=== PATIENT | male | born 1940 | race Caucasian/White ===

== ENCOUNTER 2016-08-20 12:12 | Emergency (ER) | payer MEDICARE, OTHER ==
[2016-08-20] MEDS ORDERED: Diphtheria,Pertussis(Acell),Tetanus Vaccine 0.5 ML SDV IM ONE (13:05)
[2016-08-20 13:27] VITALS: BP 170/85
--- NOTE | 2016-08-23 09:41 | ER ---
DATE SEEN: 08/20/2016 TIME SEEN: The patient was seen at 1230 hours. CHIEF COMPLAINT: Laceration, left fifth finger. PAST MEDICAL HISTORY: No diabetes, but he has hypothyroidism, hypertension, he has bilateral hip discomfort, bilateral ESTRELLITA, obesity, hyperuricemia, gout, diabetes, KAVITHA for which he uses CPAP and atrial fibrillation MEDICATIONS: 1. Warfarin for atrial fibrillation. 2. Potassium. 3. Lasix. 4. Omeprazole. 5. Irbesartan. 6. Atorvastatin. 7. Metoprolol. 8. Levothyroxine. 9. Allopurinol. 10.Glipizide. ALLERGIES: Penicillin. PHYSICAL EXAMINATION: GENERAL: Pleasant, very overweight, pear-shaped body, and in mild distress, who has very large working hands. VITAL SIGNS: Blood pressure 162/81, heart rate 82, respirations 17, oxygen saturation 96, 147.418 kg, BMI 42.9. HEENT: Negative. LUNGS: Clear. HEART: Without murmur. ABDOMEN: Soft. No guarding. Marked pear-shaped body habitus. EXTREMITIES: Without edema. Left upper extremity, laceration 2.5 cm in the distal phalangeal tuft of his finger. Sensation intact. Cap refill is good. Wound was cleansed and injected with lidocaine 1%/1:100,000 epinephrine. After adequate analgesia, the wound was again cleansed, flushed, then closed with interrupted 6 stitches of 4-0 Ethilon. The patient tolerated the procedure well. No complications. Tetanus was given to him today. PLAN: Follow up with doctor in 14 days for suture removal. Keep clean. If it gets wet, change dressing, otherwise use bacitracin and dressing on a daily basis. Elevate his hand to decrease throbbing. OTHER DIAGNOSES: Diabetes, hypertension, obstructive sleep apnea, hypothyroidism, gout, obesity, and bilateral hip arthritis. /[id number] MIGUELINA/MATTHEW
== END 2016-08-20 13:22 | disposition home or self-care (01) ==
LOC: FB.ED 12:12
DX: S61.217A Laceration without foreign body of left little finger without damage to nail, initial encounter (principal); I10 Essential (primary) hypertension; E03.9 Hypothyroidism, unspecified; G47.33 Obstructive sleep apnea (adult) (pediatric); M10.9 Gout, unspecified; E66.9 Obesity, unspecified; M16.0 Bilateral primary osteoarthritis of hip; I48.91 Unspecified atrial fibrillation; Z88.0 Allergy status to penicillin; Z23 Encounter for immunization; X58.XXXA Exposure to other specified factors, initial encounter
CPT/HCPCS: 12001; 90471; 90715; 99283; A4217

== ENCOUNTER 2019-12-20 20:53 | Emergency (ER) | payer MEDICARE, OTHER ==
--- NOTE | 2019-12-20 20:59 | EDM.PDOC ---
ED HPI GENERAL MEDICAL PROBLEM - General Stated Complaint: LEG Time Seen by Provider: 12/20/19 20:58 Source of Information: Reports: Patient History Limitations: Reports: No Limitations - History of Present Illness INITIAL COMMENTS - FREE TEXT/NARRATIVE: 79-year-old male with swelling in both lower extremities for quite some time and since he had a stroke 2 years ago the swelling in his right lower leg has always been worse than the left lower leg. He oftentimes has sores that open up and drain on his right lower leg and he has had those asked 2 weeks. He has noticed over the past 3-4 days that there has developed some redness in the area of these open wounds and tonight he was concerned that he could be developing an infection. He has had no fevers or chills. No malaise. No nausea or vomiting. He has been eating and drinking normally. No cough. No shortness of breath. No chest pain. He does have some burning in the area of the wounds that he rates as a 4/10. It is worse with palpation. It is better at rest and when elevated. There are no other associated signs or symptoms. There are no other modifying factors. Onset: Other (Long-standing swelling in both legs. Open wounds for the past 1 week and with redness over the past 3-4 days.) Duration: Getting Worse (According to the patient) Location: Reports: Lower Extremity, Right (Right lower leg) Quality: Reports: Burning Severity: Mild (to 100.) Improves with: Reports: Rest Worsens with: Reports: Other (Palpation), Movement Context: Reports: Other Associated Symptoms: Reports: No Other Symptoms Treatments TOUR ESCORT: Reports: Other (see below) - Related Data Allergies Allergy/AdvReac Type Severity Reaction Status Date / Time Penicillins Allergy Hives Verified 08/20/16 12:14 Home Meds: Home Meds Allopurinol [Zyloprim] 400 mg PO DAILY 09/08/13 [History] Omeprazole 20 mg PO DAILY 03/21/16 [History] atorvaSTATin [Lipitor] 10 mg PO DAILY 03/21/16 [History] glipiZIDE [Glipizide] 5 mg PO DAILY 03/21/16 [History] Furosemide 60 mg PO DAILY 08/20/16 [History] Furosemide [Lasix] 40 mg PO ACLUNCH 08/20/16 [History] Potassium Chloride [Klor-Con 10] 20 meq PO BID 08/20/16 [History] Warfarin Sodium [Coumadin] 5 mg PO MOWEFR 08/20/16 [History] Warfarin Sodium [Coumadin] 7.5 mg PO SUMOTUTHSA 08/20/16 [History] Gabapentin [Neurontin] 100 mg PO BID 12/20/19 [History] Levothyroxine Sodium [Synthroid] 200 mcg PO ACLUNCH 12/20/19 [History] Losartan Potassium 100 mg PO DAILY 12/20/19 [History] Mupirocin Oint [Bactroban Oint] 1 dose TP BID #1 tube 12/20/19 [Rx] carvediloL [Carvedilol] 18.75 mg PO BID 12/20/19 [History] cephALEXin [Keflex] 500 mg PO TID 7 Days #21 cap 12/20/19 [Rx] hydrALAZINE [Apresoline] 25 mg PO TID 12/20/19 [History] metOLazone [Metolazone] 5 mg PO MOWEFR 12/20/19 [History] tiZANidine [Zanaflex] 2 mg PO TID 12/20/19 [History] traZODone 50 mg PO BEDTIME 12/20/19 [History] Past Medical History HEENT History: Reports: Cataract, Impaired Vision Cardiovascular History: Reports: Afib, High Cholesterol, Hypertension Other Cardiovascular History: enlarged heart Gastrointestinal History: Reports: GERD, Hiatal Hernia Genitourinary History: Reports: BPH Musculoskeletal History: Reports: Arthritis, Fracture, Gout Other Musculoskeletal History: carpal tunnel syndrome Endocrine/Metabolic History: Reports: Diabetes, Type II, Hypothyroidism, Obesity/BMI 30+ Hematologic History: Reports: Anticoagulation Therapy (Chronically anticoagulated on Coumadin.) Immunologic History: Reports: Other (See Below) (Last tetanus immunization was less than 5 years ago.) Oncologic (Cancer) History: Reports: Other (See Below) Other Oncologic History: facial tumor - Infectious Disease History Infectious Disease History: Reports: Chicken Pox, Mumps, Rubella - Past Surgical History HEENT Surgical History: Reports: Naso-Sinus Surgery GI Surgical History: Reports: Cholecystectomy, Colonoscopy, Hernia Repair/Other Male Surgical History: Reports: TURP-Transurethral Resection of Prostate Musculoskeletal Surgical History: Reports: Nerve Relocation, ORIF (Right ankle) Social & Family History - Tobacco Use Smoking Status *Q: Unknown Ever Smoked (Nonsmoker) - Caffeine Use Caffeine Use: Reports: Coffee, Soda Other Caffeine Use: diet soda - Alcohol Use Alcohol Use History: Yes Alcohol Use Frequency: Socially (Occasional) - Living Situation & Occupation Living situation: Reports: Assisted Living (In [place]) Occupation: Retired Social History Comment: Brought to the emergency department by a friend. ED ROS GENERAL - Review of Systems Review Of Systems: See Below Constitutional: Reports: No Symptoms HEENT: Reports: No Symptoms Respiratory: Reports: No Symptoms Cardiovascular: Reports: No Symptoms Endocrine: Reports: No Symptoms GI/Abdominal: Reports: No Symptoms : Reports: No Symptoms Musculoskeletal: Reports: Other (Swelling in both lower legs with right greater than left and this is chronic) Skin: Reports: Erythema, Wound (On anterior right lower leg with drainage.) Neurological: Reports: No Symptoms Hematologic/Lymphatic: Reports: Other (Chronically anticoagulated on Coumadin.) Immunologic: Reports: No Symptoms ED EXAM, GENERAL - Physical Exam Exam: See Below Exam Limited By: No Limitations General Appearance: Alert, No Apparent Distress, Obese Eye Exam: Bilateral Eye: EOMI, Normal Inspection Ears: Normal External Exam, Hearing Grossly Normal Ear Exam: Bilateral Ear: Auricle Normal Nose: Normal Inspection, Normal Mucosa, No Blood Throat/Mouth: Normal Voice, No Airway Compromise, Other (Moist mucous membranes.) Head: Atraumatic, Normocephalic Neck: Normal Inspection, Supple, Non-Tender, Full Range of Motion Respiratory/Chest: No Respiratory Distress, Lungs Clear, Normal Breath Sounds, No Accessory Muscle Use, Chest Non-Tender Cardiovascular: No JVD, No Murmur, Irregularly Irregular (With a controlled rate.) Peripheral Pulses: 2+: Radial (L), Radial (R), Dorsalis Pedis (L), Dorsalis Pedis (R) GI/Abdominal: Normal Bowel Sounds, Soft, Non-Tender, No Mass Back Exam: Normal Inspection Extremities: Normal Capillary Refill, Redness (Over anterior right lower leg around wounds.), Other (Swelling in both lower legs, ankles and feet.). No: Increased Warmth Neurological: Alert, Oriented, CN II-XII Intact, Normal Cognition, No Motor/Sensory Deficits Skin Exam: Warm, Dry, Erythema, Wound/Incision (Wounds with some granulation tissue in the center on the anterior right lower leg.) Lymphatic: No Adenopathy Course - Vital Signs Last Recorded V/S: Last Vital Signs Temp 36.5 C 12/20/19 21:06 Pulse 57 L 12/20/19 23:02 Resp 16 12/20/19 23:02 BP 141/76 H 12/20/19 23:02 Pulse Ox 96 12/20/19 23:02 - Orders/Labs/Meds Labs: Laboratory Tests 12/20/19 12/20/19 12/20/19 Range/Units 21:25 21:25 21:25 WBC 7.0 (4.5-12.0) X10-3/uL RBC 3.75 L (4.30-5.75) x10(6)uL Hgb 11.8 L (13.5-17.8) g/dL Hct 36.2 (30.0-51.3) % MCV 96.4 H (80-96) fL MCH 31.4 (27.7-33.6) pg MCHC 32.6 (32.2-35.4) g/dL RDW 14.6 (11.5-15.5) % Plt Count 202 (125-369) X10(3)uL MPV 8.6 (7.4-10.4) fL Neut % (Auto) 63.1 (46-82) % Lymph % (Auto) 20.9 (13-37) % [place] % (Auto) 10.6 (4-12) % Eos % (Auto) 5 (1.0-5.0) % Baso % (Auto) 1 (0-2) % Neut # (Auto) 4.4 (1.6-8.3) # Lymph # (Auto) 1.5 (0.6-5.0) # [place] # (Auto) 0.7 (0.0-1.3) # Eos # (Auto) 0.3 (0.0-0.8) # Baso # (Auto) 0.0 (0.0-0.2) # PT (9.0-11.1) sec INR (1.00-1.24) Sodium 140 (135-145) mmol/L Potassium 4.2 D (3.5-5.3) mmol/L Chloride 98 L D (100-110) mmol/L Carbon Dioxide 37 H (21-32) mmol/L BUN 27 H (7-18) mg/dL Creatinine 1.5 H (0.70-1.30) mg/dL Est Cr Clr Drug Dosing 44.55 mL/min Estimated GFR (MDRD) 45 L (>60) BUN/Creatinine Ratio 18.0 (9-20) Glucose 147 H (80-116) mg/dL Calcium 9.1 (8.6-10.2) mg/dL Total Bilirubin 0.7 (0.1-1.3) mg/dL AST 26 H (5-25) IU/L ALT 28 (12-36) U/L Alkaline Phosphatase 161 H (56-112) IU/L C-Reactive Protein 0.3 L (0.5-0.9) mg/dL Total Protein 7.0 (6.0-8.0) g/dL Albumin 3.6 (3.2-4.6) g/dL Globulin 3.4 g/dL Albumin/Globulin Ratio 1.1 08/21/20 Range/Units 21:25 WBC (4.5-12.0) X10-3/uL RBC (4.30-5.75) x10(6)uL Hgb (13.5-17.8) g/dL Hct (30.0-51.3) % MCV (80-96) fL MCH (27.7-33.6) pg MCHC (32.2-35.4) g/dL RDW (11.5-15.5) % Plt Count (125-369) X10(3)uL MPV (7.4-10.4) fL Neut % (Auto) (46-82) % Lymph % (Auto) (13-37) % [place] % (Auto) (4-12) % Eos % (Auto) (1.0-5.0) % Baso % (Auto) (0-2) % Neut # (Auto) (1.6-8.3) # Lymph # (Auto) (0.6-5.0) # [place] # (Auto) (0.0-1.3) # Eos # (Auto) (0.0-0.8) # Baso # (Auto) (0.0-0.2) # PT 26.4 H (9.0-11.1) sec INR 2.60 H (1.00-1.24) Sodium (135-145) mmol/L Potassium (3.5-5.3) mmol/L Chloride (100-110) mmol/L Carbon Dioxide (21-32) mmol/L BUN (7-18) mg/dL Creatinine (0.70-1.30) mg/dL Est Cr Clr Drug Dosing mL/min Estimated GFR (MDRD) (>60) BUN/Creatinine Ratio (9-20) Glucose (80-116) mg/dL Calcium (8.6-10.2) mg/dL Total Bilirubin (0.1-1.3) mg/dL AST (5-25) IU/L ALT (12-36) U/L Alkaline Phosphatase (56-112) IU/L C-Reactive Protein (0.5-0.9) mg/dL Total Protein (6.0-8.0) g/dL Albumin (3.2-4.6) g/dL Globulin g/dL Albumin/Globulin Ratio Meds: Medications Discontinued Medications Generic Name Dose Route Start Last Admin Trade Name Freq PRN Reason Stop Dose Admin Bacitracin 1 dose 12/20/19 22:17 12/20/19 22:30 Bacitracin Oint 1 Gm TOP 12/20/19 22:18 1 dose ONETIME ONE Administration Cephalexin 500 mg 12/20/19 22:17 12/20/19 22:30 Keflex PO 12/20/19 22:18 500 mg ONETIME ONE Administration - Re-Assessments/Exams Free Text/Narrative Re-Assessment/Exam: 12/20/19 22:20: The patient's blood tests are reassuring. He does have some erythema on the anterior lower leg around the wounds. This could be an early cellulitis of this area. I am going to have the patient clean the wounds with mild soap and water and apply Bactroban ointment to the wounds twice daily until they have healed over. I am also placing the patient on Keflex 500 mg 3 times a day for 7 days. He was given his first dose of the Keflex tonight. His wounds were dressed with bacitracin and Telfa for now. He is nontoxic and appears to be stable for discharge. I discussed all of this with the patient and he is in agreement with plan for discharge. 12/20/19 22:30: His INR is 2.6. He will need to have his INR rechecked by the beginning of this next week. 12/20/19 23:38: He was called and told to have his INR rechecked on Monday or Monday of this coming week. Departure - Departure Time of Disposition: 22:31 Disposition: Home, Self-Care 01 Condition: Good (Stable) Clinical Impression: Peripheral edema, Cellulitis of right lower leg - Discharge Information Prescriptions: Mupirocin Oint [Bactroban Oint] 1 dose TP BID #1 tube cephALEXin [Keflex] 500 mg PO TID 7 Days #21 cap Instructions: Cellulitis, Adult, [id number], Edema, [id number] Referrals: PCP,None [Primary Care Provider] - Forms: ED Department Discharge Additional Instructions: Your blood tests were reassuring. Your INR was 2.6. You do appear to have a mild infection in your right lower leg. You should clean the wound with mild soap and water and apply Bactroban ointment to the wounds with dressings twice daily until they have healed over. Try to elevate your legs often. Antibiotics as prescribed (Keflex 500 mg). Follow-up with your primary doctor for recheck. Back to the emergency department for fever, worsening redness, trouble breathing, chest pain, unrelenting vomiting or any other concerning sign or symptom. Sepsis Event Note (ED) - Focused Exam Vital Signs: Vital Signs Temp Pulse Resp BP Pulse Ox 12/20/19 23:02 57 L 16 141/76 H 96 12/20/19 21:06 36.5 C 65 16 159/86 H 94 L
[2019-12-20] MEDS ORDERED: Bacitracin Oint 1 GM U/D Packet TOP ONE (22:17)
[2019-12-20] MEDS ORDERED: Cephalexin 500 MG Cap PO ONE (22:17)
[2019-12-20 23:33] VITALS: BP 141/76; PULSE 57
== END 2019-12-20 23:07 | disposition home or self-care (01) ==
LOC: FB.ED 20:53
DX: L03.115 Cellulitis of right lower limb (principal); I10 Essential (primary) hypertension; E78.00 Pure hypercholesterolemia, unspecified; E11.9 Type 2 diabetes mellitus without complications; E66.9 Obesity, unspecified; E03.9 Hypothyroidism, unspecified; K21.9 Gastro-esophageal reflux disease without esophagitis; I48.91 Unspecified atrial fibrillation; Z90.49 Acquired absence of other specified parts of digestive tract; Z79.01 Long term (current) use of anticoagulants; Z88.0 Allergy status to penicillin; Z79.899 Other long term (current) drug therapy
CPT/HCPCS: 36415; 80053; 85025; 85610; 86140; 99283; A9270-GY

== ENCOUNTER 2020-03-10 08:41 | Day surgery (SDC) | payer MEDICARE, OTHER ==
[~2020-03-10 08:41] MED LIST: Lactated Ringers 1,000 ML IV SCH; Sodium Chloride 0.9% 10 ML Syringe FLUSH PRN
[2020-03-10] MEDS ORDERED: Midazolam 1 MG/ML 2 ML SDV IV ONE (08:42)
[2020-03-10] MEDS ORDERED: fentaNYL 100 MCG/2 ML SDV IV ONE (08:42)
[2020-03-10] MEDS ORDERED: acetaZOLAMIDE 500 MG Cap.ER PO ONE (09:41)
[2020-03-10 11:01] VITALS: BP 129/74; PULSE 60
--- NOTE | 2020-03-10 11:07 | OR ---
DATE OF OPERATION: 03/10/2020 SURGEON: Prabha Pham MD PREOPERATIVE DIAGNOSIS: Visually significant cataract, right eye. POSTOPERATIVE DIAGNOSIS: Visually significant cataract, right eye. PROCEDURES PERFORMED: Phacoemulsification with intraocular lens placement, right eye. ASSISTANTS: None. ANESTHESIA: Local with sedation. COMPLICATIONS: None. BLOOD LOSS: None. IMPLANTS: An Tre ACU0T0, 21.5 diopter lens, serial number [id number] implanted. CDE: 1.94. DESCRIPTION OF PROCEDURE: After risks and benefits were reviewed with the patient, consent was obtained in the preoperative area, and the operative eye was marked with a surgical pen. In the preoperative area, a pledget was used to dilate the pupil consisting of a mixture of phenylephrine 10%, cyclopentolate 2%, moxifloxacin 0.5%, and bupivacaine 0.75%. The patient was taken to the operating room, where a time-out was performed, and the patient was placed under monitored anesthesia care. Topical tetracaine was used for anesthesia. The operative eye was prepped and draped for ophthalmic surgery, and the microscope was brought into position and focused. A paracentesis incision was made, followed by injection of preservative-free 1% lidocaine into the anterior chamber, followed by injection of Viscoat into the anterior chamber. A microkeratome blade was used to make a corneal limbal incision temporally. A cystotome was used to make the beginning of the capsulorrhexis, which was carried around 360 degrees in a curvilinear fashion using Utrata forceps. A Nguyen cannula with BSS was used to hydrodissect and hydrodelineate the nucleus. The nucleus was removed in a divide and conquer manner using phacoemulsification. Irrigation and aspiration were used to remove the remaining cortical material. Provisc was used to inflate the capsular bag, and a pre-loaded Tre ACU0T0, 21.5 diopter lens, serial number [id number] was injected into the capsular bag. A Sinskey hook was used to position and center the lens. Next, irrigation and aspiration was used to remove any remaining viscoelastic and cortical material from the anterior chamber. BSS on a cannula was used to inflate the anterior chamber and hydrate the wound. The wound was checked and found to be watertight. 1 mg of Moxifloxacin was injected into the anterior chamber. Drapes were removed and the eye was cleaned. A drop of brimonidine 0.15% and a drop of TobraDex was placed. The eye was shielded, and the patient was taken to the recovery room in stable condition. /[id number] AGATA/MATTHEW
== END 2020-03-10 10:47 | disposition home or self-care (01) ==
LOC: FB.SDS 08:41
PROVIDERS: ATTEND Ophthalmology
DX: E11.36 Type 2 diabetes mellitus with diabetic cataract (principal); H25.811 Combined forms of age-related cataract, right eye; H43.822 Vitreomacular adhesion, left eye; H35.373 Puckering of macula, bilateral; H26.492 Other secondary cataract, left eye; H04.211 Epiphora due to excess lacrimation, right lacrimal gland; H04.123 Dry eye syndrome of bilateral lacrimal glands; H35.3131 Nonexudative age-related macular degeneration, bilateral, early dry stage; I11.0 Hypertensive heart disease with heart failure; I50.9 Heart failure, unspecified; I48.20 Chronic atrial fibrillation, unspecified; E03.9 Hypothyroidism, unspecified; G47.33 Obstructive sleep apnea (adult) (pediatric); Z86.73 Personal history of transient ischemic attack (TIA), and cerebral infarction without residual deficits; Z79.899 Other long term (current) drug therapy; Z88.0 Allergy status to penicillin
CPT/HCPCS: 00142; 66984; A9270; J2250; J3010; J7120; V2632; 82962

== ENCOUNTER 2024-02-04 00:53 | Inpatient (IN) | payer MEDICARE, OTHER ==
[2024-02-04 01:53] LABS: A/G RATIO 0.9; ALANINE AMINOTRANSFERASE,ALT 22 U/L (12-36); ALBUMIN 3.3 g/dL (3.2-4.6); ALKALINE PHOSPHATASE 262 IU/L (56-112); ASPARTATE AMNIOTRANSFERASE,AST 26 IU/L (5-25); BILIRUBIN TOTAL 0.8 mg/dL (0.1-1.3); BLOOD UREA NITROGEN,BUN 74 mg/dL (7-18); BUN/CREATININE RATIO 38.9 (9-20); CALCIUM 9.4 mg/dL (8.6-10.2); CARBON DIOXIDE,CO2 32 mmol/L (21-32); CHLORIDE,CL 100 mmol/L (100-110); CREATININE 1.9 mg/dL (0.70-1.30); ESTIMATED GFR 35 mL/min (>60); GLUCOSE RANDOM 163 mg/dL (80-116); POTASSIUM,K 4.3 mmol/L (3.5-5.3); PROTEIN TOTAL,TP 7.1 g/dL (6.0-8.0); SODIUM,NA 138 mmol/L (135-145)
[2024-02-04 01:56] LABS: BASOPHILS ABSOLUTE AUTO 0.1 x10-3/uL (0.0-0.3); BASOPHILS PERCENT AUTO 0.8 % (0.3-3.8); EOSINOPHILS ABSOLUTE AUTO 0.3 x10-3/uL (0.0-0.6); EOSINOPHILS PERCENT AUTO 3.8 % (0.1-6.8); HEMATOCRIT 31.6 % (38.3-50.1); HEMOGLOBIN 10.3 g/dL (12.9-17.7); LYMPHOCYTES ABSOLUTE AUTO 1.4 x10-3/uL (0.5-4.5); LYMPHOCYTES PERCENT AUTO 16.1 % (15.8-45.3); MEAN CORPUSCULAR HEMOGLOBIN 32.5 pg (27.0-33.3); MEAN CORPUSCULAR HGB CONC 32.8 g/dL (28.7-35.3); MEAN CORPUSCULAR VOLUME 99.1 fL (80.8-98.7); MEAN PLATELET VOLUME 8.8 fL (6.7-11.0); MONOCYTES ABSOLUTE AUTO 0.7 x10-3/uL (0.0-1.2); MONOCYTES PERCENT AUTO 8.1 % (5.5-15.2); NEUTROPHILS ABSOLUTE AUTO 6.3 x10-3/uL (1.7-6.9); NEUTROPHILS PERCENT AUTO 71.2 % (40.3-71.8); PLATELET COUNT,PLT 238 x10(3)uL (117-477); RED BLOOD CELL COUNT 3.19 x10(6)uL (3.90-5.90); RED CELL DISTRIBUTION WIDTH 15.2 % (12.4-15.0); WHITE BLOOD CELL COUNT,WBC 8.8 x10-3/uL (3.2-10.1)
[2024-02-04] MEDS ORDERED: Furosemide 40 MG Tab PO ONE (03:43)
[2024-02-04] MEDS: Furosemide 40 MG Tab PO ONE (06:17)
[2024-02-04] MEDS ORDERED: Melatonin 3 MG Tab PO PRN (10:17)
[2024-02-04] MEDS ORDERED: Acetaminophen 650 MG Supp RECTAL PRN (10:17)
[2024-02-04] MEDS ORDERED: Glucagon,Human Recombinant 1 MG Vial IM PRN (10:33)
[2024-02-04] MEDS ORDERED: 50% Dextrose in Water 50 ML Syringe IVPUSH PRN (10:33)
[2024-02-04] MEDS ORDERED: Insulin Lispro 100 Unit/ML 3 ML KwikPen SUBCUT ONE (10:39)
[2024-02-04] MEDS: Sodium Chloride 0.9% 10 ML Syringe FLUSH PRN (10:50)
[2024-02-04] MEDS: Acetaminophen 325 MG Tab PO PRN (11:00)
[2024-02-04] MEDS: VANCOmycin 2 GM/400 ML 2 GM in Premix Bag 1 BAG IV ONE (11:02)
[2024-02-04] MEDS: Insulin Lispro 100 Unit/ML 3 ML KwikPen SUBCUT SCH (12:27)
[2024-02-04] MEDS: Heparin Sodium 5,000 Units/ML Vial IVPUSH ONE (12:35)
[2024-02-04] MEDS: Heparin Sodium/0.45% NaCl 25,000 UNITS/500 ML BAG IV SCH (13:25)
[2024-02-04] MEDS ORDERED: Sennosides 8.6 MG Tab PO PRN (13:44)
[2024-02-04] MEDS: tiZANidine 4 MG Tab PO SCH (14:33)
[2024-02-04] MEDS: Pantoprazole 40 MG Tab.CR PO SCH (14:34)
[2024-02-04] MEDS: hydrALAZINE 25 MG Tab PO SCH (14:34)
[2024-02-04] MEDS: atorvaSTATin 10 MG Tab PO SCH (14:34)
[2024-02-04] MEDS: Allopurinol 100 MG Tab PO SCH (14:34)
[2024-02-04] MEDS: Calcium Carbonate 500 MG Tablet PO SCH (17:57)
[2024-02-04] MEDS: Furosemide 40 MG/4 ML VIAL IVPUSH SCH (21:45)
[2024-02-04] MEDS: Simethicone 80 MG Tab.Chew PO SCH (21:51)
[2024-02-04] MEDS: traZODone 50 MG Tab PO SCH (21:52)
[2024-02-04] MEDS: Carvedilol 6.25 MG Tab PO SCH (21:53)
[2024-02-04] MEDS: Melatonin 3 MG Tab PO SCH (21:54)
[2024-02-04] MEDS: Gabapentin 100 MG Cap PO SCH (21:54)
[2024-02-04] MEDS: Aluminum Hydroxide/Magnesium Hydroxide Susp 30 ML Cup PO SCH (21:54)
[2024-02-04] MEDS: Potassium Chloride 20 MEQ Tab.ER PO SCH (21:54)
[2024-02-05 06:40] LABS: BASOPHILS ABSOLUTE AUTO 0.1 x10-3/uL (0.0-0.3); BASOPHILS PERCENT AUTO 1.1 % (0.3-3.8); EOSINOPHILS ABSOLUTE AUTO 0.3 x10-3/uL (0.0-0.6); EOSINOPHILS PERCENT AUTO 2.8 % (0.1-6.8); HEMATOCRIT 30.4 % (38.3-50.1); LYMPHOCYTES ABSOLUTE AUTO 1.2 x10-3/uL (0.5-4.5); LYMPHOCYTES PERCENT AUTO 12.9 % (15.8-45.3); MEAN CORPUSCULAR HEMOGLOBIN 32.8 pg (27.0-33.3); MEAN CORPUSCULAR HGB CONC 32.8 g/dL (28.7-35.3); MEAN PLATELET VOLUME 9.1 fL (6.7-11.0); MONOCYTES ABSOLUTE AUTO 0.8 x10-3/uL (0.0-1.2); NEUTROPHILS ABSOLUTE AUTO 6.8 x10-3/uL (1.7-6.9); NEUTROPHILS PERCENT AUTO 74.2 % (40.3-71.8); PLATELET COUNT,PLT 227 x10(3)uL (117-477); RED BLOOD CELL COUNT 3.04 x10(6)uL (3.90-5.90); RED CELL DISTRIBUTION WIDTH 15.5 % (12.4-15.0); WHITE BLOOD CELL COUNT,WBC 9.1 x10-3/uL (3.2-10.1)
[2024-02-05 06:47] LABS: INR 3.25 (1.00-1.24); PROTHROMBIN TIME 30.7 sec (9.0-11.1)
[2024-02-05 06:50] LABS: A/G RATIO 0.8; ALANINE AMINOTRANSFERASE,ALT 21 U/L (12-36); ALBUMIN 2.9 g/dL (3.2-4.6); ALKALINE PHOSPHATASE 231 IU/L (56-112); ASPARTATE AMNIOTRANSFERASE,AST 26 IU/L (5-25); BILIRUBIN TOTAL 0.9 mg/dL (0.1-1.3); BLOOD UREA NITROGEN,BUN 53 mg/dL (7-18); BUN/CREATININE RATIO 33.1 (9-20); CALCIUM 8.7 mg/dL (8.6-10.2); CARBON DIOXIDE,CO2 32 mmol/L (21-32); CHLORIDE,CL 103 mmol/L (100-110); CREATININE 1.6 mg/dL (0.70-1.30); EST CRCL DRUG DOSING (CG) 39.07 mL/min; ESTIMATED GFR 43 mL/min (>60); GLUCOSE RANDOM 143 mg/dL (80-116); POTASSIUM,K 3.6 mmol/L (3.5-5.3); PROTEIN TOTAL,TP 6.7 g/dL (6.0-8.0); SODIUM,NA 141 mmol/L (135-145)
[2024-02-05] MEDS ORDERED: Sennosides/Docusate Sodium 50-8.6 MG Tab PO PRN (07:52)
[2024-02-05] MEDS: Multivitamin Tab PO SCH (09:23)
[2024-02-05] MEDS: Cholecalciferol (Vitamin D3) 25 MCG Tab PO SCH (09:23)
[2024-02-05] MEDS: VANCOmycin 1.25 GM/250 ML 1.25 GM in Premix Bag 1 BAG IV SCH (09:23)
[2024-02-05] MEDS: Losartan 100 MG Tab PO SCH (09:26)
[2024-02-05] MEDS ORDERED: Aluminum Hydroxide/Magnesium Hydroxide Susp 30 ML Cup PO PRN (10:01)
[2024-02-05] MEDS ORDERED: Simethicone 80 MG Tab.Chew PO PRN (10:02)
[2024-02-05] MEDS: Carboxymethylcellulose Sodium 0.5% Ophth Soln 15 ML Bottle EYEBOTH SCH (10:36)
[2024-02-05] MEDS: tiZANidine 4 MG Tab PO SCH (10:36)
[2024-02-05] MEDS: Warfarin 2.5 MG Tab PO ONE (17:41)
[2024-02-05] MEDS: Nystatin Topical Powder 15 GM Bottle TOP SCH (23:18)
[2024-02-06] MEDS: Pantoprazole 40 MG Tab.CR PO SCH (06:10)
[2024-02-06 06:36] LABS: BLOOD UREA NITROGEN,BUN 58 mg/dL (7-18); BUN/CREATININE RATIO 34.1 (9-20); CALCIUM 9.4 mg/dL (8.6-10.2); CARBON DIOXIDE,CO2 32 mmol/L (21-32); CHLORIDE,CL 104 mmol/L (100-110); CREATININE 1.7 mg/dL (0.70-1.30); EST CRCL DRUG DOSING (CG) 36.77 mL/min; ESTIMATED GFR 40 mL/min (>60); GLUCOSE RANDOM 158 mg/dL (80-116); POTASSIUM,K 4.2 mmol/L (3.5-5.3); SODIUM,NA 142 mmol/L (135-145)
[2024-02-06 06:38] LABS: BASOPHILS ABSOLUTE AUTO 0.1 x10-3/uL (0.0-0.3); BASOPHILS PERCENT AUTO 0.7 % (0.3-3.8); EOSINOPHILS ABSOLUTE AUTO 0.2 x10-3/uL (0.0-0.6); EOSINOPHILS PERCENT AUTO 1.4 % (0.1-6.8); HEMATOCRIT 30.8 % (38.3-50.1); HEMOGLOBIN 9.9 g/dL (12.9-17.7); LYMPHOCYTES ABSOLUTE AUTO 0.9 x10-3/uL (0.5-4.5); LYMPHOCYTES PERCENT AUTO 7.6 % (15.8-45.3); MEAN CORPUSCULAR HEMOGLOBIN 32.2 pg (27.0-33.3); MEAN CORPUSCULAR HGB CONC 32.2 g/dL (28.7-35.3); MEAN CORPUSCULAR VOLUME 100.2 fL (80.8-98.7); MONOCYTES ABSOLUTE AUTO 1.5 x10-3/uL (0.0-1.2); MONOCYTES PERCENT AUTO 12.1 % (5.5-15.2); NEUTROPHILS ABSOLUTE AUTO 9.4 x10-3/uL (1.7-6.9); NEUTROPHILS PERCENT AUTO 78.2 % (40.3-71.8); PLATELET COUNT,PLT 223 x10(3)uL (117-477); RED BLOOD CELL COUNT 3.08 x10(6)uL (3.90-5.90); RED CELL DISTRIBUTION WIDTH 15.4 % (12.4-15.0); WHITE BLOOD CELL COUNT,WBC 12.1 x10-3/uL (3.2-10.1)
[2024-02-06 07:48] LABS: PROTHROMBIN TIME 28.5 sec (9.0-11.1)
[2024-02-06] MEDS: Warfarin 2.5 MG Tab PO ONE (17:53)
[2024-02-06 18:47] LABS: HIV 1,2 COMBO ANTIGEN/ANTIBODY Negative (Negative)
[2024-02-06] MEDS: METRONIDAZOLE 0.75% TOP SCH (20:33)
[2024-02-07 06:35] LABS: INR 2.61 (1.00-1.24); PROTHROMBIN TIME 25.1 sec (9.0-11.1)
[2024-02-07 06:38] LABS: BLOOD UREA NITROGEN,BUN 69 mg/dL (7-18); BUN/CREATININE RATIO 32.9 (9-20); CALCIUM 9.7 mg/dL (8.6-10.2); CARBON DIOXIDE,CO2 32 mmol/L (21-32); CHLORIDE,CL 102 mmol/L (100-110); EST CRCL DRUG DOSING (CG) 29.77 mL/min; ESTIMATED GFR 31 mL/min (>60); GLUCOSE RANDOM 152 mg/dL (80-116); POTASSIUM,K 4.5 mmol/L (3.5-5.3); SODIUM,NA 140 mmol/L (135-145)
[2024-02-07 06:46] LABS: BASOPHILS ABSOLUTE AUTO 0.1 x10-3/uL (0.0-0.3); BASOPHILS PERCENT AUTO 0.5 % (0.3-3.8); EOSINOPHILS ABSOLUTE AUTO 0.2 x10-3/uL (0.0-0.6); EOSINOPHILS PERCENT AUTO 1.9 % (0.1-6.8); HEMATOCRIT 30.5 % (38.3-50.1); HEMOGLOBIN 9.8 g/dL (12.9-17.7); LYMPHOCYTES ABSOLUTE AUTO 1.1 x10-3/uL (0.5-4.5); LYMPHOCYTES PERCENT AUTO 9.2 % (15.8-45.3); MEAN CORPUSCULAR HEMOGLOBIN 32.4 pg (27.0-33.3); MEAN CORPUSCULAR HGB CONC 32.2 g/dL (28.7-35.3); MEAN CORPUSCULAR VOLUME 100.4 fL (80.8-98.7); MEAN PLATELET VOLUME 9.1 fL (6.7-11.0); MONOCYTES ABSOLUTE AUTO 1.2 x10-3/uL (0.0-1.2); NEUTROPHILS PERCENT AUTO 78.4 % (40.3-71.8); PLATELET COUNT,PLT 230 x10(3)uL (117-477); RED BLOOD CELL COUNT 3.04 x10(6)uL (3.90-5.90); RED CELL DISTRIBUTION WIDTH 15.4 % (12.4-15.0); WHITE BLOOD CELL COUNT,WBC 11.5 x10-3/uL (3.2-10.1)
[2024-02-07 06:47] LABS: CREATININE 2.1 mg/dL (0.70-1.30)
[2024-02-07] MEDS: Furosemide 40 MG/4 ML VIAL IVPUSH SCH (08:57)
[2024-02-07] MEDS: Ferrous Sulfate 325 MG Tab PO SCH (09:04)
[2024-02-07] MEDS: Warfarin 5 MG, Warfarin 2.5 MG PO ONE (17:08)
[2024-02-07] MEDS: Heparin Sodium/0.45% NaCl 25,000 UNITS/500 ML BAG IV SCH (18:19)
[2024-02-07 18:32] LABS: BILIRUBIN,URINE NEGATIVE (NEGATIVE); GLUCOSE,URINE NORMAL (NORMAL); KETONES,URINE NEGATIVE (NEGATIVE); LEUKOCYTE ESTERASE,URINE NEGATIVE (NEGATIVE); NITRITE,URINE NEGATIVE (NEGATIVE); OCCULT BLOOD,URINE NEGATIVE (NEGATIVE); PROTEIN,URINE NEGATIVE (NEGATIVE); UROBILINOGEN,URINE NORMAL (NEGATIVE)
[2024-02-07 19:07] LABS: APPEARANCE,URINE CLEAR (CLEAR); COLOR,URINE YELLOW (YELLOW)
[2024-02-07 19:08] LABS: BACTERIA,URINE RARE (NS); HYALINE CASTS,URINE FEW (NS); RBC,URINE 0-5 (0-5); SQUAMOUS EPITHELIAL CELLS,UR OCCASIONAL (NS,R,O); WBC,URINE 0-5 (0-5)
[2024-02-07 20:45] VITALS: BP 108/53; PULSE 60
[2024-02-08] MEDS ORDERED: VANCOmycin 1 GM/200 ML 1 GM in Premix Bag 1 BAG IV ONE (09:00)
[2024-02-09 21:59] LABS: CREATININE,URINE - PER VOLUME 135 mg/dL; HOURS COLLECTED Not Provided hr; TOTAL VOLUME Not Provided mL; URINE UREA NITROGEN - MG/DL 346 mg/dL
[2024-02-10 11:23] LABS: CREATININE,URINE - PER VOLUME 135 mg/dL; HOURS COLLECTED Not Provided hr; TOTAL VOLUME Not Provided mL
== END 2024-02-07 21:25 | DRG 292 ==
LOC: FB.ED 00:53 → FB.MS 03:40 → OBSVTOIN 10:17
PROVIDERS: ADMIT Family Medicine; ATTEND Internal Medicine
DX: R60.0 Localized edema (principal); I12.9 Hypertensive chronic kidney disease with stage 1 through stage 4 chronic kidney disease, or unspecified chronic kidney disease; I13.0 Hypertensive heart and chronic kidney disease with heart failure and stage 1 through stage 4 chronic kidney disease, or unspecified chronic kidney disease; R06.89 Other abnormalities of breathing; L03.115 Cellulitis of right lower limb; Z68.42 Body mass index [BMI] 45.0-49.9, adult; L97.819 Non-pressure chronic ulcer of other part of right lower leg with unspecified severity; E11.9 Type 2 diabetes mellitus without complications; L97.829 Non-pressure chronic ulcer of other part of left lower leg with unspecified severity; N17.9 Acute kidney failure, unspecified; Z79.890 Hormone replacement therapy; Z66 Do not resuscitate; I50.9 Heart failure, unspecified; I48.91 Unspecified atrial fibrillation; E78.00 Pure hypercholesterolemia, unspecified; K21.9 Gastro-esophageal reflux disease without esophagitis; N40.0 Benign prostatic hyperplasia without lower urinary tract symptoms; M19.90 Unspecified osteoarthritis, unspecified site; M10.9 Gout, unspecified; E03.9 Hypothyroidism, unspecified; E66.9 Obesity, unspecified; N18.9 Chronic kidney disease, unspecified; E11.22 Type 2 diabetes mellitus with diabetic chronic kidney disease; I83.018 Varicose veins of right lower extremity with ulcer other part of lower leg; H54.7 Unspecified visual loss; I83.028 Varicose veins of left lower extremity with ulcer other part of lower leg; R79.89 Other specified abnormal findings of blood chemistry; I45.10 Unspecified right bundle-branch block; L22 Diaper dermatitis; L71.9 Rosacea, unspecified; I27.20 Pulmonary hypertension, unspecified; Z88.0 Allergy status to penicillin; Z79.899 Other long term (current) drug therapy; Z79.84 Long term (current) use of oral hypoglycemic drugs; Z79.01 Long term (current) use of anticoagulants; Z87.19 Personal history of other diseases of the digestive system; Z87.891 Personal history of nicotine dependence; Z86.73 Personal history of transient ischemic attack (TIA), and cerebral infarction without residual deficits; Z98.890 Other specified postprocedural states; Z90.49 Acquired absence of other specified parts of digestive tract
CPT/HCPCS: 36415; 80053; 83880; 85025; 99285 ×2; A9270; G0378 ×2; 51702; 71045; 80048; 80202; 81001; 82570; 82947; 83735; 84484; 84540; 85610; 85730; 87040; 87389; 93005; 93010; 93306; 93970; 94150; 97110-GO; 97161-GP; 97165-GO; 99222; 99232; 99238; J1644; J1815; J1940; J3372; J3490; U0002

== ENCOUNTER 2024-02-28 14:16 | Observation (INO) | payer MEDICARE, OTHER ==
[2024-02-28] MEDS: Dextrose 5%-0.9% NaCl 1,000 ML IV SCH (14:25)
[2024-02-28] MEDS: 50% Dextrose in Water 50 ML Syringe IVPUSH ONE (14:25)
[2024-02-28 14:52] LABS: HEMATOCRIT 27.9 % (38.3-50.1); MEAN CORPUSCULAR HEMOGLOBIN 31.5 pg (27.0-33.3); MEAN CORPUSCULAR HGB CONC 32.4 g/dL (28.7-35.3); MEAN CORPUSCULAR VOLUME 97.5 fL (80.8-98.7); MEAN PLATELET VOLUME 9.3 fL (6.7-11.0); PLATELET COUNT,PLT 328 x10(3)uL (117-477); RED BLOOD CELL COUNT 2.86 x10(6)uL (3.90-5.90); RED CELL DISTRIBUTION WIDTH 15.1 % (12.4-15.0); WHITE BLOOD CELL COUNT,WBC 18.7 x10-3/uL (3.2-10.1)
[2024-02-28 15:01] LABS: A/G RATIO 0.5; ALANINE AMINOTRANSFERASE,ALT 22 U/L (12-36); ALBUMIN 1.8 g/dL (3.2-4.6); ALKALINE PHOSPHATASE 353 IU/L (56-112); ASPARTATE AMNIOTRANSFERASE,AST 23 IU/L (5-25); BILIRUBIN TOTAL 0.4 mg/dL (0.1-1.3); BUN/CREATININE RATIO 24.7 (9-20); CALCIUM 8.7 mg/dL (8.6-10.2); CARBON DIOXIDE,CO2 26 mmol/L (21-32); CHLORIDE,CL 99 mmol/L (100-110); ESTIMATED GFR 9 mL/min (>60); GLUCOSE RANDOM 166 mg/dL (80-116); POTASSIUM,K 5.4 mmol/L (3.5-5.3); PROTEIN TOTAL,TP 5.5 g/dL (6.0-8.0); SODIUM,NA 132 mmol/L (135-145)
[2024-02-28 15:06] LABS: BLOOD UREA NITROGEN,BUN 146 mg/dL (7-18); CREATININE 5.9 mg/dL (0.70-1.30)
[2024-02-28] MEDS: Sodium Chloride 0.9% 1,000 ML IV SCH ×2 (15:22→16:18)
[2024-02-28 15:23] LABS: LACTIC ACID 0.8 mmol/L (0.4-2.0); LYMPHOCYTES PERCENT MAN 5 % (13-37); MONOCYTES PERCENT MAN 5 % (4-12); SEG NEUTROPHILS PERCENT MAN 90 % (46-82)
[2024-02-28 15:27] LABS: PTT,PARTIAL THROMBOPLSTIN TIME 50.8 SECONDS (24.4-33.2)
[2024-02-28] MEDS: Cefepime 2 GM Vial IVPUSH ONE (15:29)
[2024-02-28 15:31] LABS: INR 5.29 (1.00-1.24); PROTHROMBIN TIME 47.9 sec (9.0-11.1); TROPONIN I 61.9 pg/mL (4.0-60.3)
[2024-02-28] MEDS: VANCOmycin 2 GM/400 ML 2 GM in Premix Bag 1 BAG IV ONE (15:39)
[2024-02-28 16:13] LABS: BILIRUBIN,URINE SMALL (NEGATIVE); GLUCOSE,URINE NORMAL (NORMAL); KETONES,URINE NEGATIVE (NEGATIVE); LEUKOCYTE ESTERASE,URINE SMALL (NEGATIVE); NITRITE,URINE NEGATIVE (NEGATIVE); OCCULT BLOOD,URINE NEGATIVE (NEGATIVE); PROTEIN,URINE NEGATIVE (NEGATIVE); UROBILINOGEN,URINE NORMAL (NEGATIVE)
[2024-02-28 16:14] LABS: AMORPHOUS SEDIMENT,URINE FEW; APPEARANCE,URINE SLIGHTLY CLOUDY (CLEAR); BACTERIA,URINE RARE (NS); COLOR,URINE YELLOW (YELLOW); RBC,URINE 0-5 (0-5); SQUAMOUS EPITHELIAL CELLS,UR RARE (NS,R,O); WBC,URINE 0-5 (0-5)
[2024-02-28] MEDS ORDERED: Norepinephrine 4 MG in Dextrose 5% in Water 246 ML IV SCH (17:00)
[2024-02-28] MEDS: Norepinephrine Bit/D5W Premix 4 MG in Premix Bag 1 BAG IV SCH (17:25)
[2024-02-28] MEDS ORDERED: LORazepam 2 MG/ML SDV IV PRN (18:16)
[2024-02-28] MEDS: Morphine 2 MG/ML SYRINGE IVPUSH PRN (19:33)
[2024-02-28] MEDS: Saccharomyces Boulardii (Probiotic) 250 MG Cap PO SCH (21:39)
[2024-02-28] MEDS: Sodium Chloride 0.9% 10 ML Syringe FLUSH PRN (21:47)
[2024-02-29 02:42] VITALS: BP 55/27; PULSE 60
[2024-03-03 12:04] LABS: ADENOVIRUS 40/41 PCR Not Detected; ASTROVIRUS PCR Not Detected; CAMPYLOBACTER PCR Not Detected; CRYPTOSPORIDIUM PCR Not Detected; CYCLOSPORA CAYETANENSIS PCR Not Detected; ENTAMOEBA HISTOLYTICA PCR Not Detected; ENTEROAGGREGATIVE E. COLI PCR Not Detected; ENTEROPATHOGENIC E. COLI PCR Not Detected; ENTEROTOXIGENIC E. COLI PCR Not Detected; GIARDIA LAMBLIA PCR Not Detected; NOROVIRUS GI/GII PCR Detected; PLESIOMONAS SHIGELLOIDES PCR Not Detected; ROTAVIRUS A PCR Not Detected; SALMONELLA PCR Not Detected; SAPOVIRUS PCR Not Detected; SHIG/ENTEROINVASIVE E COLI PCR Not Detected; SHIGA TOXIN-PRODUC E. COLI PCR Not Detected; VIBRIO CHOLERAE PCR Not Detected; VIBRIO PCR Not Detected; YERSINIA ENTEROCOLITICA PCR Not Detected
== END 2024-02-29 01:55 | disposition expired ==
LOC: FB.ED 14:16 → FB.MS 18:29
PROVIDERS: ADMIT Emergency Medicine; ATTEND Internal Medicine
DX: A41.9 Sepsis, unspecified organism (principal); R65.21 Severe sepsis with septic shock; E11.649 Type 2 diabetes mellitus with hypoglycemia without coma; I10 Essential (primary) hypertension; E78.00 Pure hypercholesterolemia, unspecified; E03.9 Hypothyroidism, unspecified; K21.9 Gastro-esophageal reflux disease without esophagitis; Z79.890 Hormone replacement therapy; Z79.899 Other long term (current) drug therapy
CPT/HCPCS: 36415; 71045; 80053; 81001; 82947; 83605; 83880; 84484; 85025; 85610; 85730; 87507; 93005; 93010; 96361; 96365; 96366; 96367; 96375; 96376; 99285; 99285-25; C1758; G0378; J0692; J2270; J3372; J3490; J7030